=== PATIENT | male | born 1975 | race Caucasian/White ===

== ENCOUNTER 2018-11-04 11:35 | Inpatient (IN) | payer MEDICAID ==
[~2018-11-04] VITALS: Ht 165.1 cm; Wt 76.8 kg
[2018-11-04] MEDS ORDERED: SOD CHLORIDE 0.9% 1,000 ML IV STA (12:27)
[2018-11-04] MEDS ORDERED: ONDANSETRON 4 MG INJ IV STA (12:27)
[2018-11-04] MEDS ORDERED: KETOROLAC 30 MG INJ IV STA (12:27)
[2018-11-04] MEDS ORDERED: SOD CHLORIDE 0.9% 100 ML ONE (13:51)
[2018-11-04] MEDS ORDERED: IOHEXOL 300MG/ML 150 ML BTL ONE (13:51)
--- NOTE | 2018-11-04 14:23 | NUR ---
Procedure Ordered:CT ABD/PEL W/CONTRAST Reason for Exam Today:ABD PAIN Previous Exams: Allergies:NKDA Current Medications Taken: Glucophage ( ) Metformin ( ) Previous reaction to contrast media: Yes ( ) No (X ) : Yes ( ) No (X ) Asthma: Yes ( ) No (X ) Diabetes: Yes ( ) No ( X) Myeloma: Yes ( ) No ( X) Heart Disease: Yes ( ) No (X ) Cardiac Disease: Yes ( ) No (X ) Kidney Disease: Yes ( ) No ( X) Vascular Disease: Yes ( ) No (X ) Patient Teaching done: Yes ( ) No ( ) Relay Dispatcher Used: Yes ( ) No ( ) Name of Relay Dispatcher: Language Used: As part of the test requested by your doctor, contrast media may be injected into your vein while the x-rays are being taken. Occasionally, reactions from IV contrast may occur. The physician and staff of this hospital are trained to treat these reactions. Select the type of Contrast that will be given to patient: Isovue 300 ( ) Isovue 370 ( ) Visipaque ( ) Cystografin ( ) OMNIPAQUE 300 (X) Gastrographin ( ) Redi-cat ( ) Volumen ( ) Amount of contrast to be given: 100CC IV (X ) PO ( ) Date given:11/04/18 Lab Values: BUN: 19 Creatinine:0.96 Reason why contrast cannot be given: Location of patient pre-procedure:[facility] 26 Location of patient post procedure: [facility] 26 PT TOLERATED IV CONTRAST INJECTION WELL
[2018-11-04] MEDS ORDERED: ERTAPENEM SODIUM 1 GM in SOD CHLORIDE 0.9% 100 ML IVPB ONE (15:00)
[2018-11-04] MEDS ORDERED: ACETAMINOPHEN 500 MG TAB PO STA (15:23)
--- NOTE | 2018-11-04 15:30 | ERD ---
ER Documentation Chief Complaint Chief Complaint Sent from MD for eval perineal pain HPI This is a 43-year-old male who complains of 2 days of pain located in the perineum. No dysuria no hematuria, there is some pain with bowel movement but no blood in the stool. He has a fever today of 102 with chills this morning. No nausea vomiting diarrhea or abdominal pain ROS All systems reviewed and are negative except as per history of present illness. Allergies Allergies: Coded Allergies: No Known Allergy (Unverified , 11/04/18) PMhx/Soc Medical and Surgical Hx: pt denies Medical Hx, pt denies Surgical Hx Hx Alcohol Use: No Hx Substance Use: No Hx Tobacco Use: No Smoking Status: Never smoker FmHx Family History: No coronary disease Physical Exam Vitals Vital Signs Date Temp Pulse Resp B/P (MAP) Pulse Ox O2 O2 Flow FiO2 Time Delivery Rate 11/04/18 103.0 88 26 105/56 100 Room Air 15:16 (72) 11/04/18 102.6 15:09 11/04/18 102.4 95 20 145/66 100 11:37 (92) Physical Exam Const: Well-developed, well-nourished Head: Atraumatic, normocephalic Eyes: Normal Conjunctiva, PERRLA, EOMI, normal sclera, no nystagmus ENT: Normal External Ears, Nose and Mouth, moist mucus membranes. Neck: Full range of motion. No meningismus, no lymphadenopathy. Resp: Clear to auscultation bilaterally, no wheezing, rhonchi, rales Cardio: Regular rate and rhythm, no murmurs, S1 S2 present Abd: Soft, non tender x 4, non distended. Normal bowel sounds, no guarding or rebound, no pulsitile abdominal masses or bruits Rectal: There is some tenderness at the cranium perianal junction no gross abscess is seen Skin: No petechiae or rashes, no ecchymosis , no maculopapular rash Back: No midline or flank tenderness Ext: No cyanosis, or edema, FROM x 4, normal inspection, neurovascular ly intact x 4 Neur: Awake and alert, STR 5/5 x 4, sensation intact x 4, no focal findings, cerebellum intact Psych: Normal Mood and Affect Result Diagram: 11/04/18 1247 11/04/18 1247 Results 24 hrs Laboratory Tests Test 11/04/18 12:47 White Blood Count 15.6 10^3/ul Red Blood Count 4.41 10^6/ul Hemoglobin 13.4 g/dl Hematocrit 38.8 % Mean Corpuscular Volume 88.0 fl Mean Corpuscular Hemoglobin 30.4 pg Mean Corpuscular Hemoglobin Concent 34.5 g/dl Red Cell Distribution Width 11.8 % Platelet Count 195 10^3/UL Mean Platelet Volume 9.9 fl Immature Granulocytes % 0.400 % Neutrophils % 90.4 % Lymphocytes % 3.7 % Monocytes % 5.3 % Eosinophils % 0.0 % Basophils % 0.2 % Nucleated Red Blood Cells % 0.0 /100WBC Immature Granulocytes # 0.060 10^3/ul Neutrophils # 14.1 10^3/ul Lymphocytes # 0.6 10^3/ul Monocytes # 0.8 10^3/ul Eosinophils # 0.0 10^3/ul Basophils # 0.0 10^3/ul Nucleated Red Blood Cells # 0.0 10^3/ul Urine Color YELLOW Urine Clarity CLEAR Urine pH 6.0 Urine Specific Solen 1.018 Urine Ketones NEGATIVE mg/dL Urine Nitrite NEGATIVE mg/dL Urine Bilirubin NEGATIVE mg/dL Urine Urobilinogen 1+ mg/dL Urine Leukocyte Esterase NEGATIVE Karen/ul Urine Microscopic RBC 5 /HPF Urine Microscopic WBC 1 /HPF Urine Hemoglobin 2+ mg/dL Urine Glucose 3+ mg/dL Urine Total Protein NEGATIVE mg/dl Sodium Level 139 mmol/L Potassium Level 3.1 mmol/L Chloride Level 98 mmol/L Carbon Dioxide Level 30 mmol/L Anion Gap 11 Blood Urea Nitrogen 19 mg/dl Creatinine 0.96 mg/dl Est Glomerular Filtrat Rate mL/min > 60 mL/min Glucose Level 141 mg/dl Calcium Level 9.4 mg/dl Total Bilirubin 0.7 mg/dl Direct Bilirubin 0.00 mg/dl Indirect Bilirubin 0.7 mg/dl Aspartate Amino Transf (AST/SGOT) 35 IU/L Alanine Aminotransferase (ALT/SGPT) 32 IU/L Alkaline Phosphatase 68 IU/L Total Protein 7.8 g/dl Albumin 4.4 g/dl Globulin 3.40 g/dl Albumin/Globulin Ratio 1.29 Lipase 49 U/L Current Medications Medications Dose Sig/Vince Start Time Status Last (Trade) Ordered Route PRN Stop Time Admin Dose Reason Admin Sodium 1,000 ml @ Q1H STAT 12/27/18 DC 11/04/18 Chloride 1,000 mls/hr IV 12: 12:59 11/04/18 13:26 Ondansetron 4 mg ONCE STAT 11/04/18 DC 11/04/18 HCl (Zofran IV 12: 12:58 Inj) 11/04/18 12:29 Ketorolac 30 mg ONCE STAT 11/04/18 DC 11/04/18 Tromethamine IV 12: 12:58 (Toradol) 11/04/18 12:29 IV Flush 10 ml STK-MED 11/04/18 DC 11/04/18 (NS 10 ml) ONCE .ROUTE 13:51 14:22 11/04/18 13:52 Sodium 100 ml @ ud STK-MED 11/04/18 DC 11/04/18 Chloride ONCE .ROUTE 13:51 14:22 11/04/18 13:52 Iohexol 150 ml STK-MED 11/04/18 DC 11/04/18 (Omnipaque ONCE .ROUTE 13:51 14:22 300mg/ ml) 11/04/18 13:52 Ertapenem 1 100 ml @ ONCE ONCE 11/04/18 11/04/18 gm/ Sodium 200 mls/hr IVPB 15:00 15:03 Chloride 11/04/18 15:29 Procedures/MDM Ordering MD: RUSSELL BARRETT PA-C Location: [facility] Room/Bed: PROCEDURE: CT Abdomen and Pelvis with contrast. CLINICAL INDICATION: Abdominal pelvic pain. Perineal pain. Swelling. TECHNIQUE: CT scan of the abdomen and pelvis with contrast was performed following the uncomplicated intravenous administration of 100 cc of Omnipaque 300 IV contrast. Coronal and sagittal reformatted images were obtained from the axial source images. DICOM images are available. CTDI equals 10.82 mGy, and DLP equals 656.79 mGy-cm. One or more of the following dose reduction techniques were used: - Automated exposure control. - Adjustment of the mA and/or kV according to patient size. - Use of iterative reconstruction technique. COMPARISON: None. FINDINGS: Lower thorax: Normal. Liver: Normal. Patent portal vein. Biliary: Normal gallbladder. No biliary dilatation. Pancreas: Normal. Spleen: Normal. Adrenal Glands: Normal. Genitourinary: Normal. Gastrointestinal: Normal, with normal appendix. Lymph nodes: Normal. Vascular: Normal. Peritoneum/mesentery: Normal. No free fluid or free air. Reproductive organs: Normal. Musculoskeletal: Normal. Other: Small 2.6 cm fluid collection in the inferior perianal region extending to the right inferior perineum consistent with a small fistula with abscess. Further evaluation is warranted. IMPRESSION: 1. Perianal fistula with small abscess formation. 2. MRI with '[id number]' protocol is advised. RPTAT: HMJB .Franko Yin MD, MD Date Time Electronically viewed and signed by .Franko Yin MD, MD on 11/04/2018 14:12 .B/ CC: DEVONTE BARRETT PA-C [id number] Patient was given Invanz 1 g IV with Tylenol. Spoke with Dr. Mi general vazquez rgery will see in consultation Very small abscess and may not even need surgery at this point Will admit Departure Diagnosis: Primary Impression: Perianal abscess Condition: Stable MARTIN BASSETT DO Nov 04, 2018 15:30
[2018-11-04] MEDS ORDERED: ACETAMINOPHEN 325 MG TAB PO PRN (16:00)
[2018-11-04] MEDS ORDERED: ONDANSETRON 4 MG INJ IV PRN (16:00)
--- NOTE | 2018-11-04 16:24 | HP ---
Date/Time of Note Date/Time of Note DATE: 11/04/18 TIME: 16:01 Assessment/Plan VTE Prophylaxis Pharmacological prophylaxis: NA/contraindicated Pharm contraindication: low risk/ambulating Lines/Catheters IV Catheter Type (from Nrsg): Saline Lock Assessment/Plan Assessment/Plan 43 yo man with no major PMD presents with perianal abscess. #Perianal abscess - Small 2.6 cm fluid collection in the inferior perianal region extending to the right inferior perineum consistent with a small fistula with abscess. - Will do Zosyn IV. - Oral and IV analgesia as needed. - Dr. Mi from general surgery consulted. DVT: SCDs GI: None Result Diagram: 11/04/18 1247 11/04/18 1247 HPI/ROS Admit Date/Time Admit Date/Time Nov 04, 2018 Hx of Present Illness Mr. Mullen is a pleasant Albanian-speaking 43 yo man with no major PMH who presents with rectal pain and fever. He was in his usual state of health until about 2 days ago when he developed sharp rectal pain, worse when sitting, also painful bowel movements but no blood or mucous in the stools. He also has had intermittent fevers and chills today. He went to a clinic and the doctor referred him to the emergency room. He had a similar problem about two years ago with a perineal abscess between the anus and scrotum. He had I&D at [facility] and finished 1 week of antibiotics. In the ED he was febrile to 103.0, otherwise vitals normal. WBC 15.6. CT showed 2.6 cm perianal abscess. ROS Denies anorexia, night sweats, headache, vision changes, chest pain/pressure/palpitations, sore throat, dyspnea, cough, nausea, vomiting, abdominal pain, diarrhea, constipation, dysuria, hematura, hematochezia. PMH/Family/Social Past Medical History Denies Medications Current Medications Ondansetron HCl (Zofran Inj) 4 mg BRIDGE ORDER PRN IV NAUSEA AND/OR VOMITING; Start 11/04/18 at 16:00; Stop 11/05/18 at 15:59 Acetaminophen (Tylenol Tab) 650 mg ER BRIDGE PRN PO MILD PAIN(1-3)OR ELEVATED TEMP; Start 11/04/18 at 16:00; Stop 11/05/18 at 15:59 Coded Allergies: No Known Allergy (Unverified , 11/04/18) Past Surgical History Perineal abscess I&D about 2 years ago at [facility] Social History Alcohol Use: none Smoking Status: Never smoker Drug Use: none Exam/Review of Systems Vital Signs Vitals Vital Signs Date Temp Pulse Resp B/P (MAP) Pulse Ox O2 O2 Flow FiO2 Time Delivery Rate 11/04/18 103.4 15:59 11/04/18 88 26 105/56 100 Room Air 15:16 (72) Exam Exam Gen: Well developed man in no acute distress. Eyes: PERRL, no icterus HEENT: Moist mucous membranes, clear oropharynx Neck: Supple, no lymphadenopathy Card: Regular rate and rhythm no murmurs Pulm: Clear to auscultation bilaterally Abd: Soft, nontender, nondistended. Ext: No cyanosis/clubbing/edema Rectal: Warm, tender area on left border of anus around 3 oclock. No palpable mass. ANIBAL MAGUIRE MD Nov 04, 2018 16:12
[2018-11-04] MEDS ORDERED: NACL 0.9% 3 ML SYG IV SCH (16:30)
[2018-11-04] MEDS ORDERED: HYDROCODONE/APAP (5/325) TAB PO PRN (16:30)
[2018-11-04 17:17] VITALS: Ht 165.1 cm; Wt 76.8 kg
[2018-11-04] MEDS: PIPER-TAZO 3.375 GM IV (PMX) 100 ML IVPB SCH ×2 (17:57→23:31)
--- NOTE | 2018-11-04 18:16 | NUR ---
END OF SHIFT SUMMARY Pt alert and oriented x4. Divehi speaking. IV Zosyn given. New admission from ER. Admission questions answered. Diet upgraded to regular. Pt brought by transport with RAC 22g IV site. Pt admitted due to perianal abscess; palpable but unable to visualize. Pt in stable condition, is not complaining of pain. Will continue to monitor pt and endorse new plan of care to oncoming shift.
[2018-11-04 19:40] VITALS: BP 97/46; PULSE 77; RESP 17
--- NOTE | 2018-11-04 19:50 | NUR ---
Pt with low grade fever of 99.4. Provided pt with cold measures. Will continue to monitor pt. Addendum: 11/05/18 at 0316 by GRAHAM NORRIS RN Pt with fever of 102.9 F. Ibuprofen administered. Rechecked temperature and decreased to 101.3 F. cold measures provided.
[2018-11-04] MEDS: SENNA TAB PO SCH (21:16)
[2018-11-04] MEDS ORDERED: POTASSIUM CHLORIDE (SR) 20 MEQ TAB PO ONE (23:04)
[2018-11-05] MEDS: IBUPROFEN 600 MG TAB PO PRN ×2 (02:21→14:15)
[2018-11-05 02:25] VITALS: BP 87/49; PULSE 87; RESP 18
[2018-11-05] MEDS: PIPER-TAZO 3.375 GM IV (PMX) 100 ML IVPB SCH ×4 (05:26→23:35)
--- NOTE | 2018-11-05 06:09 | NUR ---
END OF SHIFT REPORT Pt alert and oriented x4. Pt on bed in low position with call light within reach. Pt's ambulatory with steady gait. Pt's vitals stable with no acute distress noted. All due meds given. Pt with low potassium level. Contacted Dr. Green with orders for potassium 40meq po x1. Carried out orders. Pt with elevated temperature. Administered ibuprofen and provided cold measures with effective decrease in temperature. Will endorse pt to AM shift nurse for continuation of care.
[2018-11-05 08:00] VITALS: BP 102/49; PULSE 64
[2018-11-05] MEDS: SENNA TAB PO SCH ×2 (08:09→21:18)
[2018-11-05] MEDS ORDERED: INFLUENZA VIRUS VACCINE 0.5 ML (DISPENSING) IM* ONE (09:00)
[2018-11-05 14:09] VITALS: BP 103/59; PULSE 86; RESP 18
--- NOTE | 2018-11-05 14:23 | CONS ---
Date/Time of Note Date/Time of Note DATE: 11/05/18 TIME: 14:17 Assessment/Plan Assessment/Plan Assessment/Plan Perianal abscess with fistula in ano. Large amount of spontaneous drainage at the bedside after examination. Plan: Continue IV antibiotics and sitz bath 1/2-hour 4 times daily Resolution of abscess expected with nonoperative measures. Result Diagram: 11/05/18 0544 11/05/18 0544 Results 24hrs Laboratory Tests Test 11/05/18 05:44 White Blood Count 17.1 H Red Blood Count 4.18 L Hemoglobin 12.6 L Hematocrit 37.3 L Mean Corpuscular Volume 89.2 Mean Corpuscular Hemoglobin 30.1 Mean Corpuscular Hemoglobin Concent 33.8 Red Cell Distribution Width 11.8 Platelet Count 166 Mean Platelet Volume 9.8 Immature Granulocytes % 0.700 H Neutrophils % 84.3 H Lymphocytes % 7.7 L Monocytes % 7.1 Eosinophils % 0.0 Basophils % 0.2 Nucleated Red Blood Cells % 0.0 Immature Granulocytes # 0.120 H Neutrophils # 14.4 H Lymphocytes # 1.3 Monocytes # 1.2 H Eosinophils # 0.0 Basophils # 0.0 Nucleated Red Blood Cells # 0.0 Sodium Level 141 Potassium Level 3.6 Chloride Level 102 Carbon Dioxide Level 29 Anion Gap 10 Blood Urea Nitrogen 17 Creatinine 1.05 Est Glomerular Filtrat Rate mL/min > 60 Glucose Level 122 Hemoglobin A1c 4.8 Calcium Level 9.0 Phosphorus Level 3.7 Magnesium Level 2.1 Total Bilirubin 0.7 Direct Bilirubin 0.00 Indirect Bilirubin 0.7 Aspartate Amino Transf (AST/SGOT) 40 Alanine Aminotransferase (ALT/SGPT) 51 Alkaline Phosphatase 58 Total Protein 6.5 # Albumin 3.6 Globulin 2.90 Albumin/Globulin Ratio 1.24 Consultation Date/Type/Reason Admit Date/Time Nov 04, 2018 Date of Consultation: Nov 05, 2018 Type of Consult General surgery Reason for Consultation Perianal abscess with anal fistula Hx of Present Illness The patient is an otherwise healthy 43-year-old gentleman who presented to the ER yesterday with 2 days of worsening dexter-anal pain and fevers as high as 103. Imaging studies in the emergency room showed a 2.7 cm perianal abscess with a fistula. The patient was admitted, started on IV antibiotics, and surgical consultation was requested. He continued to be febrile throughout the day. Constitutional: no complaints, febrile Eyes: no complaints ENT: no complaints Respiratory: no complaints Cardiovascular: no complaints Gastrointestinal: pain (Pain entirely in the anal area) Genitourinary: no complaints Musculoskeletal: no complaints Skin: no complaints Neurologic: no complaints Endocrine: no complaints Lymphatic: no complaints Psychological: no complaints Past Medical History Medical History: other (She states that he had a similar episode 2 years ago which was treated by incision and drainage at [facility]) Medications Current Medications Ondansetron HCl (Zofran Inj) 4 mg BRIDGE ORDER PRN IV NAUSEA AND/OR VOMITING; Start 11/04/18 at 16:00; Stop 11/05/18 at 15:59 Acetaminophen (Tylenol Tab) 650 mg ER BRIDGE PRN PO MILD PAIN(1-3)OR ELEVATED TEMP Last administered on 11/05/18at 12:56; Admin Dose 650 MG; Start 11/04/18 at 16:00; Stop 11/05/18 at 15:59 IV Flush (NS 3 ml) 3 ml PER PROTOCOL IV ; Start 11/04/18 at 16:30 Ibuprofen (Motrin) 600 mg Q6H PRN PO PAIN Last administered on 11/05/18at 14:15; Admin Dose 600 MG; Start 11/04/18 at 16:30 Acetaminophen/ Hydrocodone Bitart ([place] (5/325)) 1 tab Q6H PRN PO BREAKTHROUGH PAIN Last administered on 11/05/18at 08:09; Admin Dose 1 TAB; Start 11/04/18 at 16:30 Senna (Senokot) 1 tab BID PO Last administered on 11/05/18at 08:09; Admin Dose 1 TAB; Start 11/04/18 at 21:00 Piperacillin Sod/ Tazobactam Sod 100 ml @ 200 mls/hr Q6 IVPB Last administered on 11/05/18at 12:06; Admin Dose 200 MLS/HR; Start 11/04/18 at 17:00 Allergies: Coded Allergies: No Known Allergy (Unverified , 11/04/18) Past Surgical History Past Surgical Hx: no surgical history, other (As above) Family History Significant Family History: no pertinent family hx Social History Alcohol Use: none Smoking Status: Never smoker Drug Use: none Exam/Review of Systems Vital Signs Vitals Vital Signs Date Temp Pulse Resp B/P (MAP) Pulse Ox O2 O2 Flow FiO2 Time Delivery Rate 12/28/18 102.0 14:15 11/05/18 86 18 103/59 97 Room Air 14:09 (74) Intake and Output 11/04/18 11/04/18 11/05/18 1414:59 22:59 06:59 IntakeIntake Total 100 ml 440 ml BalanceBalance 100 ml 440 ml Exam Constitutional: alert, oriented Psych: no complaints Head: normocephalic Eyes: nl conjunctiva Neck: supple Respiratory: clear to auscultation, crackles/rales Genitourinary - Male: other (There is a fistula in ano at 7:00 in lithotomy position. Pressure on the perianal tissues resulted in an immediate discharge of a large amount of foul-smelling pus through the fistula) Musculoskeletal: nl extremities to inspection Extremities: normal pulses Neurological: RESORT DESK CLERK II-XII intact Skin: nl turgor Medications Medications Current Medications Ondansetron HCl (Zofran Inj) 4 mg BRIDGE ORDER PRN IV NAUSEA AND/OR VOMITING; Start 11/04/18 at 16:00; Stop 11/05/18 at 15:59 Acetaminophen (Tylenol Tab) 650 mg ER BRIDGE PRN PO MILD PAIN(1-3)OR ELEVATED TEMP Last administered on 11/05/18at 12:56; Admin Dose 650 MG; Start 11/04/18 at 16:00; Stop 11/05/18 at 15:59 IV Flush (NS 3 ml) 3 ml PER PROTOCOL IV ; Start 11/04/18 at 16:30 Ibuprofen (Motrin) 600 mg Q6H PRN PO PAIN Last administered on 11/05/18at 14:15; Admin Dose 600 MG; Start 11/04/18 at 16:30 Acetaminophen/ Hydrocodone Bitart ([place] (5/325)) 1 tab Q6H PRN PO BREAKTHROUGH PAIN Last administered on 11/05/18at 08:09; Admin Dose 1 TAB; Start 11/04/18 at 16:30 Senna (Senokot) 1 tab BID PO Last administered on 11/05/18at 08:09; Admin Dose 1 TAB; Start 11/04/18 at 21:00 Piperacillin Sod/ Tazobactam Sod 100 ml @ 200 mls/hr Q6 IVPB Last administered on 11/05/18at 12:06; Admin Dose 200 MLS/HR; Start 11/04/18 at 17:00 FATOUMATA GAFFNEY MD Nov 05, 2018 14:23
--- NOTE | 2018-11-05 14:53 | PN ---
Date/Time of Note Date/Time of Note DATE: 11/05/18 TIME: 14:51 Assessment/Plan VTE Prophylaxis Risk score (from Ns)>0 risk: 0 SCD applied (from Ns): Yes Pharmacological prophylaxis: NA/contraindicated Pharm contraindication: low risk/ambulating Lines/Catheters IV Catheter Type (from Nrsg): Peripheral IV Assessment/Plan Assessment/Plan 43 yo man with no major PMD presents with perianal abscess. #Perianal abscess - Small 2.6 cm fluid collection in the inferior perianal region extending to the right inferior perineum consistent with a small fistula with abscess. - Zosyn IV x48 hours, then will do PO antibiotics. - Oral and IV analgesia as needed. - Dr. Mi from general surgery following. - Abscess now drained 11/05, continue sitz baths 30 minutes 4 times daily. DVT: SCDs GI: None Anticipate discharge tomorrow if fevers resolve. Result Diagram: 11/05/18 0544 11/05/18 0544 Results 24hrs Laboratory Tests Test 11/05/18 05:44 White Blood Count 17.1 H Red Blood Count 4.18 L Hemoglobin 12.6 L Hematocrit 37.3 L Mean Corpuscular Volume 89.2 Mean Corpuscular Hemoglobin 30.1 Mean Corpuscular Hemoglobin Concent 33.8 Red Cell Distribution Width 11.8 Platelet Count 166 Mean Platelet Volume 9.8 Immature Granulocytes % 0.700 H Neutrophils % 84.3 H Lymphocytes % 7.7 L Monocytes % 7.1 Eosinophils % 0.0 Basophils % 0.2 Nucleated Red Blood Cells % 0.0 Immature Granulocytes # 0.120 H Neutrophils # 14.4 H Lymphocytes # 1.3 Monocytes # 1.2 H Eosinophils # 0.0 Basophils # 0.0 Nucleated Red Blood Cells # 0.0 Sodium Level 141 Potassium Level 3.6 Chloride Level 102 Carbon Dioxide Level 29 Anion Gap 10 Blood Urea Nitrogen 17 Creatinine 1.05 Est Glomerular Filtrat Rate mL/min > 60 Glucose Level 122 Hemoglobin A1c 4.8 Calcium Level 9.0 Phosphorus Level 3.7 Magnesium Level 2.1 Total Bilirubin 0.7 Direct Bilirubin 0.00 Indirect Bilirubin 0.7 Aspartate Amino Transf (AST/SGOT) 40 Alanine Aminotransferase (ALT/SGPT) 51 Alkaline Phosphatase 58 Total Protein 6.5 # Albumin 3.6 Globulin 2.90 Albumin/Globulin Ratio 1.24 Subjective 24 Hr Interval Summary Free Text/Dictation Abscess drained spontaneously at bedside during exam by Dr. Mi today. Patient remains intermittently febrile over hospital stay. Overall feeling well, pain well controlled. Exam/Review of Systems Vital Signs Vitals Vital Signs Date Temp Pulse Resp B/P (MAP) Pulse Ox O2 O2 Flow FiO2 Time Delivery Rate 11/05/18 102.0 14:15 11/05/18 86 18 103/59 97 Room Air 14:09 (74) Intake and Output 11/04/18 11/04/18 11/05/18 1515:00 23:00 07:00 IntakeIntake Total 100 ml 440 ml BalanceBalance 100 ml 440 ml Exam Gen: Well developed man in no acute distress. Eyes: PERRL, no icterus HEENT: Moist mucous membranes, clear oropharynx Neck: Supple, no lymphadenopathy Card: Regular rate and rhythm no murmurs Pulm: Clear to auscultation bilaterally Abd: Soft, nontender, nondistended. Ext: No cyanosis/clubbing/edema Medications Medications Current Medications Ondansetron HCl (Zofran Inj) 4 mg BRIDGE ORDER PRN IV NAUSEA AND/OR VOMITING; Start 11/04/18 at 16:00; Stop 11/05/18 at 15:59 Acetaminophen (Tylenol Tab) 650 mg ER BRIDGE PRN PO MILD PAIN(1-3)OR ELEVATED TEMP Last administered on 11/05/18at 12:56; Admin Dose 650 MG; Start 11/04/18 at 16:00; Stop 11/05/18 at 15:59 IV Flush (NS 3 ml) 3 ml PER PROTOCOL IV ; Start 11/04/18 at 16:30 Ibuprofen (Motrin) 600 mg Q6H PRN PO PAIN Last administered on 11/05/18at 14:15; Admin Dose 600 MG; Start 11/04/18 at 16:30 Acetaminophen/ Hydrocodone Bitart ([place] (5/325)) 1 tab Q6H PRN PO BREAKTHROUGH PAIN Last administered on 11/05/18at 08:09; Admin Dose 1 TAB; Start 11/04/18 at 16:30 Senna (Senokot) 1 tab BID PO Last administered on 11/05/18at 08:09; Admin Dose 1 TAB; Start 11/04/18 at 21:00 Piperacillin Sod/ Tazobactam Sod 100 ml @ 200 mls/hr Q6 IVPB Last administered on 11/05/18at 12:06; Admin Dose 200 MLS/HR; Start 11/04/18 at 17:00 ANIBAL MAGUIRE MD Nov 05, 2018 14:53
--- NOTE | 2018-11-05 17:39 | NUR ---
aox4, no surgery planned per Dr Mi, pt on sitz bath 4 times a day, continues on IVF Abx therapy, tolerated well
[2018-11-05 20:00] VITALS: BP 99/62; PULSE 88; RESP 19
--- NOTE | 2018-11-05 21:57 | NUR ---
patient did his own zits bath today. verbalized pain 0/10, currently multiple family members visiting.
[2018-11-06 02:00] VITALS: BP 100/66; PULSE 86; RESP 20
--- NOTE | 2018-11-06 04:32 | NUR ---
Patient has been doing Zits bath diligently pain is 0/10, vital signs are within normal limits including temperature.
[2018-11-06] MEDS: PIPER-TAZO 3.375 GM IV (PMX) 100 ML IVPB SCH ×2 (05:15→13:15)
[2018-11-06 07:59] VITALS: BP 111/59; PULSE 68; RESP 18
[2018-11-06] MEDS: SENNA TAB PO SCH (08:03)
--- NOTE | 2018-11-06 10:34 | QN ---
Documentation Comment Patient is currently asymptomatic. His fever has broken and white count is coming down. The anal fistula is barely perceptible and barely draining, with rectal examination reverting to almost normal Plan: Patient can be discharged on p.o. antibiotics with outpatient referral to colorectal surgeon FATOUMATA GAFFNEY MD Nov 06, 2018 10:34
[2018-11-06] MEDS ORDERED: METR500T19 PO (11:42)
[2018-11-06] MEDS ORDERED: HYDR-3601 PO (11:42)
[2018-11-06] MEDS ORDERED: CIPR500T4 PO (11:42)
--- NOTE | 2018-11-06 11:44 | PDOCDIS ---
Discharge Instructions DIAGNOSIS Discharge Diagnosis Perirectal abscess CONDITION [id number] Patient Condition: Capux2j Good HOME CARE INSTRUCTIONS: [id number] Diet Instructions: [id number] Regular ACTIVITY: [id number] Activity Restrictions: [id number] No Restrictions FOLLOW UP/APPOINTMENTS Follow-up Plan 1. Continue sitz baths four times per day, 30 minutes at a time. 2. Take 10 days of antibiotics as prescribed. Take the full course. 3. Return to the ED for worsening pain not relieved by [place]. 4. See your primary care doctor in 1-2 weeks. ANIBAL MAGUIRE MD Nov 06, 2018 11:44
--- NOTE | 2018-11-06 14:17 | NUR ---
Patient discharged in stable condition . No c/o of pain, no s/s of any acute distress .Discharge paperwork,prescription reviewed and signed by patient .Verbalized understanding. Patient discharged with all his belongings via wheelchair accompanying by his family.
--- NOTE | 2018-11-06 17:00 | DS ---
Date/Time of Note Date/Time of Note DATE: 11/06/18 TIME: 16:58 Discharge Summary Admission/Discharge Info Admit Date/Time Nov 04, 2018 at 15:53 Discharge Date/Time Nov 06, 2018 Discharge Diagnosis Perirectal abscess Patient Condition: Good Consults General Surgery (Dr. Mi) Procedures None Hx of Present Illness Mr. Mullen is a pleasant [place]ian-speaking 43 yo man with no major PMH who presents with rectal pain and fever. He was in his usual state of health until about 2 days ago when he developed sharp rectal pain, worse when sitting, also painful bowel movements but no blood or mucous in the stools. He also has had intermittent fevers and chills today. He went to a clinic and the doctor referred him to the emergency room. He had a similar problem about two years ago with a perineal abscess between the anus and scrotum. He had I&D at [facility] and finished 1 week of antibiotics. In the ED he was febrile to 103.0, otherwise vitals normal. WBC 15.6. CT showed 2.6 cm perianal abscess. Hospital Course Patient was admitted to med/surg and started on IV zosyn. He continued to be febrile throughout the night. In the morning, while Dr. Mi was examining him the abscess spontaneously ruptured with copious purulent exudate. He was instructed on how to do sitz baths. He will be discharge with instructions to continue sitz baths, and 10 days cipro/flagyl. Home Meds Active Scripts Metronidazole* (Metronidazole*) 500 Mg Tablet, 500 MG PO Q8, #30 TAB Prov:ANIBAL MAGUIRE MD 11/06/18 Ciprofloxacin Hcl* (Ciprofloxacin Hcl*) 500 Mg Tablet, 500 MG PO BID, #20 TAB Prov:ANIBAL MAGUIRE MD 11/06/18 Hydrocodone Bit-Acetaminophen (Hydrocodone Bit-APAP) 5-325MG Tablet, 1 TAB PO Q6H PRN for BREAKTHROUGH PAIN, #7 TAB Prov:ANIBAL MAGUIRE MD 11/06/18 Follow-up Plan 1. Continue sitz baths four times per day, 30 minutes at a time. 2. Take 10 days of antibiotics as prescribed. Take the full course. 3. Return to the ED for worsening pain not relieved by [place]. 4. See your primary care doctor in 1-2 weeks. Primary Care Provider Care Physician No Primary Time spent on discharge: > 30 minutes Pending Labs Laboratory Tests Test 11/06/18 06:12 White Blood Count 15.3 10^3/ul (4.8-10.8) Red Blood Count 4.01 10^6/ul (4.70-6.10) Hemoglobin 12.1 g/dl (14.0-18.0) Hematocrit 35.3 % (42.0-52.0) Mean Corpuscular Volume 88.0 fl (82.0-101.0) Mean Corpuscular Hemoglobin 30.2 pg (29.0-33.0) Mean Corpuscular Hemoglobin Concent 34.3 g/dl (32.0-37.0) Red Cell Distribution Width 11.9 % (11.5-14.5) Platelet Count 164 10^3/UL (140-415) Mean Platelet Volume 10.1 fl (7.4-10.4) Immature Granulocytes % 0.500 % (0.001-0.429) Neutrophils % 80.8 % (39.0-77.0) Lymphocytes % 10.4 % (15.0-51.0) Monocytes % 7.8 % (0.0-11.0) Eosinophils % 0.3 % (0.0-7.0) Basophils % 0.2 % (0.0-2.0) Nucleated Red Blood Cells % 0.0 /100WBC (0.0-0.0) Immature Granulocytes # 0.070 10^3/ul (0.0-0.031) Neutrophils # 12.3 10^3/ul (1.6-7.5) Lymphocytes # 1.6 10^3/ul (0.8-2.9) Monocytes # 1.2 10^3/ul (0.3-0.9) Eosinophils # 0.0 10^3/ul (0.0-0.5) Basophils # 0.0 10^3/ul (0.0-0.1) Nucleated Red Blood Cells # 0.0 10^3/ul (0.0-0.0) ANIBAL MAGUIRE MD Nov 06, 2018 17:00
== END 2018-11-06 14:15 | disposition home or self-care (01) | DRG 349 ==
LOC: FTE 11:35 → 5EC 15:53
PROVIDERS: ADMIT Internal Medicine; ATTEND Internal Medicine
PROC: 0D9QXZZ Drainage of Anus, External Approach (ICD-10-PCS; principal; 2018-11-05)
DX: K61.0 Anal abscess (principal)
CPT/HCPCS: 36415; 74177; 80053; 81001; 83036; 83690; 83735; 84100; 85025; 87040; 96374; 96375; J1885; J2405; J2543; J7030; Q9967

== ENCOUNTER 2018-11-11 07:25 | Emergency (ER) | payer MEDICAID ==
[~2018-11-11] VITALS: Ht 170.2 cm; Wt 74.2 kg
[~2018-11-11 07:25] MED LIST: CIPR500T4 PO; HYDR-3601 PO; METR500T19 PO
[2018-11-11 07:28] VITALS: BP 130/63; PULSE 56; RESP 18; Ht 170.2 cm; Wt 74.2 kg
[2018-11-11] MEDS ORDERED: CEPH-443 PO (07:52)
[2018-11-11] MEDS ORDERED: MUPI22OI2 TOP (07:52)
[2018-11-11] MEDS ORDERED: MED4DP PO (07:52)
[2018-11-11] MEDS ORDERED: DEXAMETHASONE 10 MG/ML 1 ML INJ IM ONE (08:00)
--- NOTE | 2018-11-11 08:35 | ERD ---
ER Documentation Chief Complaint Chief Complaint allergic reaction to cipro or flagyl took it for 3 days HPI 43-year-old male presenting with allergic reaction to ciprofloxacin or Flagyl. Patient was seen here 1 week ago and diagnosed with perianal abscess. Perianal abscess spontaneously ruptured on its own and no surgical intervention was indicated. Patient was discharged after 2 days on ciprofloxacin and Flagyl. Patient states that his pain has resolved and he no longer has a fever. He has been taking antibiotics for 3 days but is developed a very itchy-like rash on his torso and extremities. denies facial swelling or tongue swelling. ROS All systems reviewed and are negative except as per history of present illness. Medications Home Meds Active Scripts Mupirocin* (Bactroban*) 2% -22 Gram Oint...g., 1 APPLIC TOP BID for 7 Days, EA Prov:DEVONTE BARRETT PA-C 11/11/18 Cephalexin* (Keflex*) 500 Mg Capsule, 500 MG PO QID for 7 Days, CAP Prov:DEVONTE BARRETT PA-C 11/11/18 Methylprednisolone* (Medrol* DOSE PACK) 4 Mg/Dose-Pack Tab.ds.pk, 4 MG PO . DIRECTED, #1 PACKET Prov:DEVONTE BARRETT PA-C 11/11/18 Metronidazole* (Metronidazole*) 500 Mg Tablet, 500 MG PO Q8, #30 TAB Prov:ANIBAL MAGUIRE MD 11/06/18 Ciprofloxacin Hcl* (Ciprofloxacin Hcl*) 500 Mg Tablet, 500 MG PO BID, #20 TAB Prov:ANIBAL MAGUIRE MD 11/06/18 Hydrocodone Bit-Acetaminophen (Hydrocodone Bit-APAP) 5-325MG Tablet, 1 TAB PO Q6H PRN for BREAKTHROUGH PAIN, #7 TAB Prov:ANIBAL MAGUIRE MD 11/06/18 Allergies Allergies: Coded Allergies: No Known Allergy (Unverified , 11/04/18) PMhx/Soc Medical and Surgical Hx: pt denies Medical Hx, pt denies Surgical Hx History of Surgery: No Anesthesia Reaction: No Hx Neurological Disorder: No Hx Respiratory Disorders: No Hx Cardiac Disorders: No Hx Psychiatric Problems: No Hx Miscellaneous Medical Probl: No Hx Alcohol Use: No Hx Substance Use: No Hx Tobacco Use: No Smoking Status: Never smoker FmHx Family History: No diabetes, No coronary disease, No other Physical Exam Vitals Vital Signs Date Temp Pulse Resp B/P (MAP) Pulse Ox O2 O2 Flow FiO2 Time Delivery Rate 11/11/18 97.0 56 18 130/63 99 07:28 (85) Physical Exam GENERAL: The patient is well-appearing, well-nourished, in no acute distress HEENT: Atraumatic. Conjunctivae are pink. Pupils equal, round, and reactive to light. There is no scleral icterus. Tympanic membranes clear bilaterally. Oropharynx clear. CHEST: Clear to auscultation bilaterally. There are no rales, wheezes or rhonchi. HEART: Regular rate and rhythm. No murmurs, clicks, rubs or gallops. No S3 or S4. SKIN: urticaria rash on torso. Folliculitis around mouth. Results 24 hrs Current Medications Medications Dose Sig/Vince Start Time Status Last (Trade) Ordered Route PRN Stop Time Admin Dose Reason Admin 10 mg ONCE ONCE 11/11/18 DC 11/11/18 Dexamethasone IM 08:00 11/11/18 07:58 (Decadron) 08:01 Procedures/MDM ER course: Decadron given in ED MDM: 43 yr old male complaining of rash. I have low suspicion for life threatening rash. I have low suspicion for meningitis or sepsis. I have low suspicion for anaphylaxis. Patient will have antibiotics switched and given supportive medications. He is told if symptoms change or worsen to immediately return to the ER. All questions answered at discharge Departure Diagnosis: Primary Impression: Folliculitis Additional Impression: Allergic reaction Condition: Stable Patient Instructions: Allergic Reaction, Drug Referrals: [facility] YOU HAVE RECEIVED A MEDICAL SCREENING EXAM AND THE RESULTS INDICATE THAT YOU DO NOT HAVE A CONDITION THAT REQUIRES URGENT TREATMENT IN THE EMERGENCY DEPARTMENT. FURTHER EVALUATION AND TREATMENT OF YOUR CONDITION CAN WAIT UNTIL YOU ARE SEEN IN YOUR DOCTORS OFFICE WITHIN THE NEXT 1-2 DAYS. IT IS YOUR RESPONSIBILITY TO MAKE AN APPOINTMENT FOR FOLOW-UP CARE. IF YOU HAVE A PRIMARY DOCTOR --you should call your primary doctor and schedule an appointment IF YOU DO NOT HAVE A PRIMARY DOCTOR YOU CAN CALL OUR PHYSICIAN REFERRAL HOTLINE AT IF YOU CAN NOT AFFORD TO SEE A PHYSICIAN YOU CAN CHOSE FROM THE FOLLOWING [facility] [id number] [facility]. [facility] [address] [facility] [facility] [address] [facility] [address] [facility] [address] [facility]. [facility] [address] Additional Instructions: FOLLOW UP WITH YOUR PRIMARY CARE PHYSICIAN TOMORROW.Return to this facility if you are not improving as expected. DEVONTE BARRETT PA-C Nov 11, 2018 08:34
== END 2018-11-11 08:10 | disposition home or self-care (01) ==
LOC: FTE 07:25
DX: L73.9 Follicular disorder, unspecified (principal); T36.8X5A Adverse effect of other systemic antibiotics, initial encounter; T37.3X5A Adverse effect of other antiprotozoal drugs, initial encounter
CPT/HCPCS: 96372; J1100; Z7502